=== PATIENT | female | born 2005 | race Caucasian/White ===

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

== ENCOUNTER 2025-06-24 15:16 | Outpatient (CLI) | payer BC, SELFPAY ==
[2025-06-24 15:40] LABS: Abs Immature Grans 0.02 10^3/uL (0.0-0.06); HCT 40.5 % (36.0-46.0); HGB 13.2 g/dL (11.2-15.7); Immature Grans % 0.3 %; MCH 26.6 pg (27.0-33.0); MCHC 32.6 % (32.0-36.0); MCV 82 fL (80-95); MPV 9.8 fL (8.0-11.0); Platelet Count 328 10^3/uL (130-400); RBC 4.97 10^6/uL (3.93-5.22); RDW 15.8 % (11.7-14.6); RDW-SD 47.5 fL; WBC 6.97 10^3/uL (4.4-10.8)
[2025-06-24 15:54] LABS: Hemoglobin A1C 5.4 % (<5.7)
[2025-06-24 17:10] LABS: ALT 16 U/L (10-49); AST 22 U/L (<34); Albumin 5.1 g/dL (3.2-5.0); Alkaline Phosphatase 86 U/L (46-116); Anion Gap 5.2 mmol/L (3-11); BUN 19 mg/dL (9-23); Bilirubin, Total 0.60 mg/dL (0.2-1.2); CO2 27.8 mmol/L (20.0-31.0); Calcium 9.8 mg/dL (8.3-10.6); Chloride 106 mmol/L (98-107); Cholesterol 179 mg/dL (<200); Glucose 82 mg/dL (74-106); HDL Cholesterol 75 mg/dL (>40); Potassium 3.9 mmol/L (3.5-5.1); Sodium 139 mmol/L (136-145); Total Protein 8.2 g/dL (5.7-8.2)
[2025-06-24 17:13] LABS: TSH (W/Ref FT4) 1.59 uIU/mL (0.55-4.78)
[2025-06-24 22:56] LABS: HBs Antibody, Quant 20.7 mIU/mL (See Note); Hepatitis B Surface Antigen Negative (Negative)
[2025-06-24 23:00] LABS: HIV-1/2 Ag & Ab Screen Negative (Negative)
[2025-06-24 23:08] LABS: Hepatitis C Ab w Rflx HCV PCR Negative (Negative)
[2025-06-26 10:40] LABS: Lyme Ab w Rflx to Lyme Confirm Negative (Negative)
[2025-06-27 16:53] LABS: B. miyamotoi PCR Negative (Negative); Babesia divergens/MO-1 Negative (Negative); Ehrlichia muris eauclairensis Negative (Negative)
[2025-06-29 13:56] LABS: TB Interpretation Negative (Negative); TB1 Ag minus Nil 0.00 IU/mL; TB2 Ag minus Nil 0.00 IU/mL
== END 2025-06-24 15:17 | disposition home or self-care (01) ==
LOC: LBO 15:16
PROVIDERS: PCP Nurse Practitioner Family; Visit Provider Nurse Practitioner Family
DX: Z11.1 Encounter for screening for respiratory tuberculosis (principal); Z11.59 Encounter for screening for other viral diseases; R61 Generalized hyperhidrosis; Z00.00 Encounter for general adult medical examination without abnormal findings
CPT/HCPCS: 36415; 80053; 80061; 86704; 86706; 86803; 87340; 87389; 87798; 83036; 84443; 85025; 86480; 86618